=== PATIENT | female | born 1945 | race Native Hawaiian/Other Pacific Islander ===

== ENCOUNTER 2020-04-04 11:00 | Emergency (ER) | payer OTHER ==
[~2020-04-04] VITALS: Ht 157.5 cm; Wt 68.0 kg
[2020-04-04 11:18] VITALS: TEMP 98.7
[2020-04-04 11:38] LABS: PLATELET COUNT 180 K/uL (152-353)
[2020-04-04 12:10] VITALS: BP 1152/74
[2020-04-04] MEDS ORDERED: AMLODIPINE BESYLATE PO (13:14)
[2020-04-04] MEDS ORDERED: DONEPEZIL HYDRO10 M1 PO (13:15)
[2020-04-04] MEDS ORDERED: ESCI10TA PO (13:16)
[2020-04-04] MEDS ORDERED: COZAAR100 MG PO (13:16)
[2020-04-04] MEDS ORDERED: PANTOPRAZOLE SO40 M1 PO ×2 (13:17→13:18)
[2020-04-04] MEDS ORDERED: CETI10TA PO (13:18)
[2020-04-04] MEDS ORDERED: MEMA10TA2 PO (13:19)
[2020-04-04] MEDS ORDERED: QUET25TA2 PO ×2 (13:20→13:22)
[2020-04-04] MEDS ORDERED: GABA400C2 PO (13:22)
[2020-04-04] MEDS ORDERED: LORA1TAB17 PO (13:23)
[2020-04-04] MEDS ORDERED: CLON0.1T16 PO (13:24)
[2020-04-04] MEDS ORDERED: HALO5INJ3 IM (13:26)
[2020-04-08] MEDS ORDERED: ESCI10TA PO (16:10)
[2020-04-08] MEDS ORDERED: GABA400C2 PO (16:11)
[2020-04-08] MEDS ORDERED: GABA100C2 PO (16:11)
[2020-04-08] MEDS ORDERED: CHOL100034 PO (16:12)
[2020-04-08] MEDS ORDERED: ACET-206 PO (16:12)
[2020-04-08] MEDS ORDERED: RISP0.25 PO (16:13)
[2020-04-08] MEDS ORDERED: FOLI1TAB26 PO (16:13)
[2020-04-08] MEDS ORDERED: MAGNSUS68 PO (16:13)
[2020-04-08] MEDS ORDERED: CYAN10009 IM (16:14)
[2020-04-08] MEDS ORDERED: CLON0.5T36 PO (16:16)
== END 2020-04-04 12:15 | disposition other institution (70) ==
LOC: ED 11:00
DX: F03.91 Unspecified dementia, unspecified severity, with behavioral disturbance (principal); Z03.818 Encounter for observation for suspected exposure to other biological agents ruled out; Z04.6 Encounter for general psychiatric examination, requested by authority
CPT/HCPCS: 80053; 85027; 87635; 93005; 99283; 99285; U0002

== ENCOUNTER 2020-04-08 16:51 | Inpatient (IN) | payer OTHER ==
[~2020-04-08] VITALS: Ht 167.6 cm; Wt 85.1 kg
[~2020-04-08 16:51] MED LIST: ACET-206 PO; AMLODIPINE BESYLATE PO; CETI10TA PO; CHOL100034 PO; CLON0.1T16 PO; CLON0.5T36 PO; COZAAR100 MG PO; CYAN10009 IM; DONEPEZIL HYDRO10 M1 PO; ESCI10TA PO; FOLI1TAB26 PO; GABA100C2 PO; GABA400C2 PO; HALO5INJ3 IM; LORA1TAB17 PO; MAGNSUS68 PO; MEMA10TA2 PO; PANTOPRAZOLE SO40 M1 PO; QUET25TA2 PO; RISP0.25 PO
[2020-04-08 18:31] VITALS: BP 175/82; TEMP 99.3; Ht 167.6 cm; Wt 85.1 kg
[2020-04-08 19:02] LABS: PLATELET COUNT 145 K/uL (152-353)
[2020-04-08 19:25] LABS: POTASSIUM 4.4 mmol/L (3.6-5.2)
[2020-04-08 20:18] VITALS: BP 157/69; TEMP 98.3
[2020-04-08 23:31] VITALS: BP 149/72; TEMP 98.4
[2020-04-08 23:33] VITALS: BP 149/72; TEMP 98.4
[2020-04-09 04:00] VITALS: BP 166/66; TEMP 98.5
[2020-04-09 05:51] LABS: PLATELET COUNT 132 K/uL (152-353)
[2020-04-09 06:00] LABS: POTASSIUM 3.8 mmol/L (3.6-5.2)
[2020-04-09 08:00] VITALS: BP 141/59; TEMP 98.3
[2020-04-09 12:00] VITALS: BP 169/80; TEMP 97.9
[2020-04-09 16:00] VITALS: BP 155/73; TEMP 98.2
[2020-04-09 20:00] VITALS: BP 181/72; TEMP 99.3
[2020-04-09 23:55] VITALS: BP 179/70; TEMP 98.7
[2020-04-10 04:00] VITALS: BP 174/73; TEMP 98.6
[2020-04-10 05:51] LABS: PLATELET COUNT 121 K/uL (152-353)
[2020-04-10 06:17] LABS: POTASSIUM 3.3 mmol/L (3.6-5.2)
[2020-04-10 08:00] VITALS: BP 192/85; TEMP 98.1
[2020-04-10 12:00] VITALS: BP 157/72; TEMP 98.6
[2020-04-10 16:00] VITALS: BP 133/55; TEMP 97.9
[2020-04-10 19:56] VITALS: BP 190/95; TEMP 98.1
[2020-04-10 23:49] VITALS: BP 133/69; TEMP 98.8
[2020-04-11 04:00] VITALS: BP 113/48; TEMP 98.3
[2020-04-11 05:10] LABS: PLATELET COUNT 111 K/uL (152-353)
[2020-04-11 05:15] LABS: POTASSIUM 3.8 mmol/L (3.6-5.2)
[2020-04-11 08:00] VITALS: BP 132/65; TEMP 97.9
[2020-04-11 12:00] VITALS: BP 113/49; TEMP 98.9
[2020-04-11 16:00] VITALS: BP 130/57; TEMP 98.9
[2020-04-11 19:55] VITALS: BP 107/50; TEMP 97.6
[2020-04-12] VITALS (7 sets, daily range): BP systolic 102–137; BP diastolic 50–71; TEMP 97.8–98.4
[2020-04-12 04:37] LABS: PLATELET COUNT 109 K/uL (152-353)
[2020-04-13 04:00] VITALS: BP 151/70; TEMP 97.8
[2020-04-13 08:00] VITALS: BP 132/55; TEMP 97.6
[2020-04-13 11:05] LABS: PLATELET COUNT 149 K/uL (152-353)
[2020-04-13 11:14] LABS: POTASSIUM 4.1 mmol/L (3.6-5.2)
[2020-04-13 12:00] VITALS: BP 127/62; TEMP 97.6
[2020-04-13 16:00] VITALS: BP 152/54; TEMP 97.9
[2020-04-13 19:54] VITALS: BP 134/56; TEMP 97.8
[2020-04-14] VITALS: BP 124/57; TEMP 97.7
[2020-04-14 03:50] VITALS: BP 128/61; TEMP 97.6
[2020-04-14 08:00] VITALS: BP 158/77; TEMP 97.6
[2020-04-14 12:00] VITALS: BP 130/64; TEMP 97.2
[2020-04-14 16:00] VITALS: BP 117/46; TEMP 98.6
[2020-04-14 20:00] VITALS: BP 145/71; TEMP 97.5
[2020-04-15] VITALS (7 sets, daily range): BP systolic 129–160; BP diastolic 41–77; TEMP 97.4–99.1
[2020-04-16 03:45] VITALS: BP 175/71; TEMP 98.5
[2020-04-16 08:00] VITALS: BP 167/69; TEMP 98.1
[2020-04-16 12:00] VITALS: BP 132/59; TEMP 98.8
[2020-04-16 16:00] VITALS: BP 148/65; TEMP 97.8
[2020-04-16 19:51] VITALS: BP 158/65; TEMP 98.5
[2020-04-17] VITALS: BP 121/73; TEMP 98.8
[2020-04-17 04:00] VITALS: BP 159/82; TEMP 98.1
[2020-04-17 08:00] VITALS: BP 155/71; TEMP 97.7
[2020-04-17 12:00] VITALS: BP 139/74; TEMP 98.3
[2020-04-17 16:00] VITALS: BP 144/59; TEMP 97.9
== END 2020-04-17 19:12 | DRG 372 ==
LOC: MED/SURG 16:51
PROVIDERS: ADMIT Internal Medicine Endocrinology, Diabetes & Metabolism
DX: A02.0 Salmonella enteritis (principal); N17.8 Other acute kidney failure; I10 Essential (primary) hypertension; K21.9 Gastro-esophageal reflux disease without esophagitis; E55.9 Vitamin D deficiency, unspecified; F03.90 Unspecified dementia, unspecified severity, without behavioral disturbance, psychotic disturbance, mood disturbance, and anxiety; F41.8 Other specified anxiety disorders; E53.8 Deficiency of other specified B group vitamins; D53.9 Nutritional anemia, unspecified; G62.89 Other specified polyneuropathies
CPT/HCPCS: 36415; 80048; 80053; 81000; 85027; 87015; 87045; 87077; 87185; 87186; 87324; 87449; 87899; J0744; J1644; J1650; J2270; J2405; J3490